=== PATIENT | male | born 1995 | race Caucasian/White ===

== ENCOUNTER 2021-10-31 16:31 | Outpatient (CLI) | payer OTHER, SELFPAY ==
--- NOTE | 2021-10-31 16:50 | XR_ITS ---
WS: [id number] RIGHT KNEE: 3 VIEW(S) TECHNIQUE: AP lateral and sunrise view. HISTORY: R knee pain after injury COMPARISON: None available. No fracture or dislocation. Normal position of the patella. No fracture. No joint space narrowing or osteophytes. No joint effusion. No soft tissue abnormality. XR/XR knee RT 3V* [id number] IMPRESSION: Normal RIGHT knee.
== END 2021-10-31 16:32 | disposition home or self-care (01) ==
PROVIDERS: Visit Provider Family Medicine
DX: S89.91XA Unspecified injury of right lower leg, initial encounter (principal); X58.XXXA Exposure to other specified factors, initial encounter
CPT/HCPCS: 73562